=== PATIENT | female | born 1950 | race Hispanic/Latino ===

== ENCOUNTER → 2023-08-07 13:46 | Outpatient (REF) | payer OTHER, SELFPAY ==
[2023-08-07 14:10] VITALS: BP 132/81; BP_SYST 95
[2023-08-07 15:20] VITALS: BP 197/101
== END ==
LOC: RADI 13:46
PROVIDERS: ATTENDING PHYSICIAN Family Medicine
DX: M65.051 Abscess of tendon sheath, right thigh (principal); M65.052 Abscess of tendon sheath, left thigh
CPT/HCPCS: 10160; 76942

== ENCOUNTER → 2023-09-18 14:03 | Outpatient (REF) | payer OTHER, SELFPAY | LOC: DHCBC HW 14:03 | PROVIDERS: ATTENDING PHYSICIAN Internal Medicine; FAMILY PHYSICIAN Family Medicine | DX: I25.10 Atherosclerotic heart disease of native coronary artery without angina pectoris (principal); R07.9 Chest pain, unspecified | CPT/HCPCS: 93306 ==

== ENCOUNTER → 2023-09-25 07:51 | Outpatient (REF) | payer OTHER, SELFPAY | LOC: DHCBC/DCA 07:51 | PROVIDERS: ATTENDING PHYSICIAN Internal Medicine; FAMILY PHYSICIAN Family Medicine | DX: I25.10 Atherosclerotic heart disease of native coronary artery without angina pectoris (principal); Z95.1 Presence of aortocoronary bypass graft; R07.9 Chest pain, unspecified; R42 Dizziness and giddiness | CPT/HCPCS: 78452; 93017; A9500; J2785 ==

== ENCOUNTER → 2024-01-28 15:29 | Outpatient (REF) | payer OTHER, SELFPAY | LOC: REG 15:29 | PROVIDERS: ATTENDING PHYSICIAN Family Medicine | DX: R07.9 Chest pain, unspecified (principal); I25.10 Atherosclerotic heart disease of native coronary artery without angina pectoris; Z95.1 Presence of aortocoronary bypass graft | CPT/HCPCS: 71046 ==

== ENCOUNTER 2024-02-12 06:32 | Emergency (ER) | payer OTHER, SELFPAY ==
[2024-02-12 06:38] VITALS: BP 186/92
--- NOTE | 2024-02-12 07:25 | ED.GENMED ---
History of Present Illness
General
Chief Complaint: Abdominal Pain
Source: patient
Exam Limitations: none
Time Seen by Provider: 02/12/24 06:51
Nursing documentation reviewed up to this point in time: agreed with
History of Present Illness
History of Present Illness:
73-year-old female with a past medical history of hypertension, hyperlipidemia, diabetes, CAD status post CABG, asthma who presents to the emergency room for evaluation of abdominal pain. Patient reports onset of symptoms a few days ago and have
been constant since that time. She reports pain mainly in the epigastric region that radiates diffusely. No clear triggering or relieving factors noted�she says she has been trying Tylenol without improvement. She reports she has had associated
headache and nausea. Denies vomiting. She denies any diarrhea and in fact reports she has been constipated x 4 days. She denies any dysuria, hematuria, change in frequency. She denies any vaginal bleeding. She denies having had similar symptoms
in the past. She denies any prior history of abdominal surgeries.
Past History
Past History
ED Past Medical History: Arrthythmia (PVC's), Asthma, GERD, HTN, Hypercholesterolemia and IDDM
ED Past Surgical History: Cardiac (Unremarkable stress echo July 2013) and Gynecological (hysterectomy)
Social History
Tobacco: Former smoker
Alcohol: Occasional
Drug: None
Personal: Single
Living: with family
Employment: Not employed
Family History
Family History: Other (nc)
Review of Systems
Review of Systems
All Other Systems: ROS reviewed and negative except as documented in HPI and ROS
Constitutional: Denies fever or chills
Respiratory: Denies trouble breathing
Cardiac: Denies chest pain
ABD/GI: Reports abdominal pain, nausea and constipated; Denies vomiting
: Denies dysuria, frequency, flank pain or bleeding
Musculoskeletal: Denies neck pain or back pain
Neurological: Reports headache; Denies dizzy, weakness or numbness
Phy Exam
Physical Exam
Physical Exam:
General: Awake, alert, oriented x3; appears uncomfortable
Head: Normocephalic, atraumatic
Eyes: Conjunctiva normal, sclera anicteric
Throat: Airway intact, moist mucous membranes
Neck: Trachea midline, supple without meningismus
Lungs: Clear to auscultation bilaterally, no wheezing, rales, rhonchi
Heart: Regular rate and rhythm, no murmurs, gallops, or rubs
Abd: Soft, mild to moderately distended, hyperactive bowel sounds, diffusely tender maximal in the epigastric region with some voluntary guarding in the epigastrium
Back: No CVA tenderness
Neuro: No gross deficits
Skin: no rash
Extremities: No edema in extremities, equal pulses in all extremities
Scores
Heart Failure Risk
Heart Failure Risk Score: Not Applicable
Heart Score for Chest Pain Patients
STEMI patient?: Not applicable
Withdrawal Assessment of Alcohol
Withdrawal Assessment Completed?: Not applicable
Course
Orders/Labs/Results
Orders:
Orders
02/12/24 07:23
CT Abd/pel W Iv And Oral Contr Urgent
Comment:
Reason For Exam: abd pain and distention
Iohexol [Omnipaque] See Protocol PO NOW STA
02/12/24 07:27
Electrocardiogram (*1) Urgent
Reason for Study: Abdominal Pain
EKG- Treatment ONCE
0.9% Sodium Chloride 500 ml [Nss] 500 ml IV BOLUS
Morphine Sulfate 4 mg IV NOW STA
Ondansetron Injectable [Zofran] 4 mg IV NOW STA
02/12/24 07:46
Complete Blood Count/With Diff Urgent
Comprehensive Metabolic Panel Urgent
Lactate Level [Lactic Acid] Urgent
Lipase Urgent
Urinalysis Reflex To Culture Urgent
Date Specimen was Collected: 02/12/24
Time Specimen was Collected: 07:45
Abnormal Lab Results
02/12/24
07:46
MPV 11.7 H fL
(7.4-10.4)
Glucose 112 H mg/dl
(70-99)
Total Protein 6.2 L g/dl
(6.3-8.2)
02/12/24 07:46
02/12/24 07:46
Vital Signs
Initial and Last Documented VS:
Initial Vital Signs
Temp Pulse Resp BP Pulse Ox
36.7 C 76 24 186/92 97
02/12/24 06:38 02/12/24 06:38 02/12/24 06:38 02/12/24 06:38 02/12/24 06:38
Last Documented Vital Signs
Temp Pulse Resp BP Pulse Ox
36.7 C 84 18 154/101 94
02/12/24 06:38 02/12/24 10:17 02/12/24 10:17 02/12/24 12:19 02/12/24 12:30
MDM/Problems Addressed
Differential Diagnosis Includes:
Gastritis, pancreatitis, bowel obstruction, severe constipation, cholecystitis, cholelithiasis, DKA
MDM/Problems Addressed:
73-year-old female presents for evaluation of abdominal pain for the past few days associated with constipation, nausea, headache. Hypertensive but otherwise normal vitals. Physical exam as above. Check labs including a CBC and a CMP, lipase.
Will send urinalysis. Will check CT of the abdomen pelvis with p.o. IV contrast. Will treat pain and nausea. Check EKG. Provide some fluids. Reassess after the above.
Labs reviewed: CBC and CMP unremarkable. Lipase normal. Urinalysis negative for infection. CT shows abdominal wall hernia containing fat, no bowel. There is some adjacent information there was a suggestion of possible strangulation on CT but at
bedside this hernia is palpable and quite easily reducible; it is mildly tender to the touch but not hard and moves freely through the defect. This could be the source of her pain but she also has gallstones on CT and I wonder if this is more
likely source. Her pain has improved with treatment here, vitals have remained stable. Although she does have gallstones on CT she has no signs of cholecystitis. Her hernia is not strangulated/incarcerated on exam. I think she is stable for
discharge and can follow-up with a general surgeon as an outpatient. Patient comfortable to this plan. Spoke about return precautions all questions answered.
Acute Exacerbation and/or Progression of Chronic Illness:
Acutely hypertensive likely pain related�treat pain but hold on additional antihypertensive treatment for now
Acute Exacerbation and/or Progression of Chronic Illness: HTN
*Radiology
Radiology exam reviewed: radiology read reviewed
*Pulse Oximetry
Patient hypoxic: no
*Critical Care Note
Total Time (30-74mins, 75-104mins- exclusive of procedures): Not Applicable
Data Reviewed
Review of Other/Old Records Reveals: Labs and Records
Source: patient, records and spouse
ED Attending Note
-
Portions of this chart may have been created with voice recognition software.� Occasional wrong word or��sound alike� substitutions may have occurred due to the inherent limitations of voice recognition software.
Discharge Plan
Departure
Patient Disposition: Home (Routine Discharge)
Date of Disposition: 02/12/24
Time of Disposition: 12:51
Patient with high blood pressure during this ER visit?: Yes
Discharge Problem:
Abdominal wall hernia, Cholelithiasis
Instructions: Gallstones ED, Abdominal Hernia
Prescriptions:
No Action
metformin 1,000 MG tablet
1,000 mg PO BID@0800,1700
albuterol sulfate 1 PUFF HFA aerosol inhaler
2 puff inhalation R Q4HPRN PRN (Reason: wheezing) Qty: 1 0RF
aspirin 81 mg Tablet,Chewable
81 mg PO DAILY
cholecalciferol (vitamin D3) [Vitamin D3] 25 mcg (1,000 unit) Tablet
25 mcg PO DAILY
metoprolol tartrate [Lopressor] 50 mg tablet
75 mg PO BID Qty: 90 1RF
losartan 50 mg Tablet
50 mg PO DAILY Qty: 0
Patient Comments:
unknonw dose
amlodipine 5 mg Tablet
10 mg PO DAILY
docusate sodium 50 mg Capsule
50 mg PO DAILY PRN (Reason: constipation)
clopidogrel [Plavix] 75 mg Tablet
75 mg PO DAILY
fexofenadine 180 mg Tablet
180 mg PO DAILY PRN (Reason: allergies) Qty: 0
hydrochlorothiazide 25 mg tablet
25 mg PO DAILY
rosuvastatin 40 mg tablet
40 mg PO DAILY
pantoprazole 40 mg Tablet,Delayed Release (Dr/Ec)
40 mg PO DAILY Qty: 30 0RF
insulin lispro protamin-lispro [Humalog Mix 75-25 KwikPen] 100 unit/mL (75-25) insulin pen
30 unit SC DAILY Qty: 15 0RF
Humalog Mix 75-25(U-100)Insuln 100 unit/mL (75-25) suspension
23 unit SC DAILY Qty: 0 0RF
Rx Instructions:
at 1630 (evening)
Referrals:
Santosh Warner MD [Active] - Call in 1-3 days for appt
Fox Roe MD [Family Provider] -
Activity Restrictions/Additional Instructions:
You should call the general surgeon today to schedule follow-up as soon as possible for evaluation of your gallstones and your hernia. If you have worsening pain, nausea, fever or any other concerning symptoms please return to the emergency room.
Thank you for visiting the Emergency Department at [facility].
1. Please schedule a follow up appointment as directed. Call first thing tomorrow morning to make an appointment.
2. If indicated, please take your medications as instructed and indicated on discharge paperwork.
3. If any of your symptoms do not improve, or persist, or become more severe within 6-12 hours, please return to the emergency department for further care.
4. Please return to the emergency department if you develop a headache, neck pain/stiffness, fever greater than 100.4F, chest pain, shortness of breath, persistent nausea, vomiting, slurred speech, difficulty walking, numbness/tingling, weakness,
signs of infection or any other symptoms that are worrisome to you.
Please call [phone] if you have any questions.
Interventions
Interventions:
*Risk Screen - Suicide Last Done: 02/12/24 07:51
*General Assessment Last Done: 02/12/24 07:51
*Neglect/Abuse Screening Last Done: 02/12/24 07:51
ED- Fall Risk Assessment Last Done: 02/12/24 07:51
*ED COVID-19 Vaccine History Last Done: 02/12/24 07:51
SF-Fmxdhr-Cagatyghpt Assessment Last Done: 02/12/24 07:51
ED- Neurological Assessment Last Done: 02/12/24 07:51
Discharge Date and Time
Print Language: CAMEROONIAN
[2024-02-12] MEDS: MORPHINE SULFATE 4 MG IV (07:40)
[2024-02-12] MEDS: OMNIPAQUE 50 ML PO (07:40)
[2024-02-12] MEDS: ZOFRAN 4 MG IV (07:40)
[2024-02-12] MEDS: NSS 500 IV (07:43)
[2024-02-12 08:07] LABS: % Basophils 0.6 % (0-2); % Eosinophils 3.1 % (0-6); % Immature Granulocytes 0.3 % (0-0.5); % Lymphocytes 27.1 % (20.5-51.1); % Monocytes 8.3 % (1.7-9.3); % Neutrophils 60.6 % (42.2-75.2); Absolute Eosinophils 0.2 10^3/uL (0-0.7); Absolute Lymphocytes 1.9 10^3/uL (1.2-3.4); Absolute Monocytes 0.6 10^3/uL (0.1-0.6); Absolute Neutrophils 4.1 10^3/uL (1.4-6.5); Hematocrit 40.4 % (37.0-47.0); Hemoglobin 13.7 g/dL (12.0-16.0); Mean Corp Hgb Conc. 33.9 g/dL (33.0-37.0); Mean Corpuscular Hgb 28.8 pg (27.0-31.0); Mean Corpuscular Volume 84.9 fL (81.0-99.0); Mean Platelet Volume 11.7 fL (7.4-10.4); Nucleated Red Blood Cells % 0 %; Platelet Count 204 10^3/uL (130-400); Red Blood Cell Count 4.76 10^6/uL (4.20-5.40); Red Cell Dist. Width 13.1 % (11.5-14.5); White Blood Cell Count 6.8 10^3/uL (4.8-10.8)
[2024-02-12 08:11] LABS: Urine Albumin Negative (Neg - Trace); Urine Bilirubin Negative (Negative); Urine Character Clear (Clear); Urine Color Yellow; Urine Glucose Negative (Negative); Urine Ketone Negative (Negative); Urine Leukocyte Negative (Negative); Urine Nitrite Negative (Negative); Urine Occult Blood Negative (Negative); Urine Urobilinogen Negative (Neg - 1+)
[2024-02-12 08:12] VITALS: BP 186/104
[2024-02-12 08:18] LABS: Lactic Acid 1.1 mmol/L (0.7-2.0)
[2024-02-12 08:19] LABS: ALT (SGPT) 16 U/L (0-35); AST (SGOT) 22 U/L (14-36); Albumin 3.9 g/dl (3.5-5.0); Alkaline Phosphatase 69 U/L (38-126); Blood Urea Nitrogen 14 mg/dl (7-17); Calcium 9.6 mg/dl (8.4-10.2); Carbon Dioxide 29 mmol/L (22-30); Chloride 103 mmol/L (98-107); Glucose 112 mg/dl (70-99); Lipase 187 U/L (23-300); Potassium 3.9 mmol/L (3.5-5.1); Sodium 141 mmol/L (135-145); Total Bilirubin 0.5 mg/dl (0.2-1.3); Total Protein 6.2 g/dl (6.3-8.2); eGFR > 60.00
[2024-02-12 10:17] VITALS: BP 158/106
[2024-02-12 12:19] VITALS: BP 154/101
== END 2024-02-12 13:23 | disposition home or self-care (01) ==
LOC: EMR 06:32
PROVIDERS: EMERGENCY PHYSICIAN Emergency Medicine; FAMILY PHYSICIAN Family Medicine
DX: K46.9 Unspecified abdominal hernia without obstruction or gangrene (principal); K80.20 Calculus of gallbladder without cholecystitis without obstruction; I10 Essential (primary) hypertension; E78.00 Pure hypercholesterolemia, unspecified; E11.9 Type 2 diabetes mellitus without complications; I25.10 Atherosclerotic heart disease of native coronary artery without angina pectoris; J45.909 Unspecified asthma, uncomplicated; K21.9 Gastro-esophageal reflux disease without esophagitis; K59.00 Constipation, unspecified
CPT/HCPCS: 99284; 96374; 96375; 96361; 74177; 80053; 81003; 83605; 83690; 85025; 93005; Q9967

== ENCOUNTER 2024-02-26 11:18 | Emergency (ER) | payer OTHER, SELFPAY ==
[2024-02-26 11:24] VITALS: BP 135/92
[2024-02-26 11:58] LABS: COVID-19 Antigen Positive (Negative)
--- NOTE | 2024-02-26 12:08 | ED.GENMED ---
History of Present Illness
<Katy Trujillo DO, Resident - Last Filed: 02/26/24 14:18>
General
Chief Complaint: Cold/Flu/URI Symptoms
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
Exam Limitations: none
Time Seen by Provider: 02/26/24 11:38
Nursing documentation reviewed up to this point in time: agreed with
History of Present Illness
History of Present Illness:
Ms. Sandeep Salgado is a 73yo algerian-speaking female w pmh CAD s/p CABGx2 (2021), HTN, IDDM, asthma, abdominal wall hernia presenting with a cold. She has had a nonproductive cough for 3 days with sore throat. She also reports nausea, loss of
appetite, no vomiting, aches from b/l knees to her spine, weakness, MCDOWELL, and fever. She denies diarrhea, rhinorrhea, lightheadedness. She denies recent sick contacts.
Pt was seen in this ED 02/13, dx abdominal wall hernia. Appt w surgeon scheduled for
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
Past History
<Katy Trujillo DO, Resident - Last Filed: 02/26/24 14:18>
Past History
ED Past Medical History: Arrthythmia (PVC's), Asthma, CAD, GERD, HTN, Hypercholesterolemia and IDDM
ED Past Surgical History: Cardiac (Unremarkable stress echo July 2013) and Gynecological (hysterectomy)
Social History
Tobacco: Former smoker
Alcohol: Occasional
Drug: None
Personal: Single
Living: with family
Employment: Not employed
Family History
Family History: Other (nc)
Review of Systems
<Katy Trujillo DO, Resident - Last Filed: 02/26/24 14:18>
Review of Systems
All Other Systems: ROS reviewed and negative except as documented in HPI and ROS
Phy Exam
<Katy Trujillo DO, Resident - Last Filed: 02/26/24 14:18>
General Physical Exam
General Presentation: mild distress
General age: appears stated age
General Skin: warm and dry
General Habitus: obese
General Mental: alert
Cardiovascular Exam
Cardiovascular Exam: regular rate/rhythm, no edema, no gallop and no murmur
Heart Sounds: normal
Pulmonary Exam
Pulmonary Exam: lungs clear, no rales, no rhonchi and no wheezing
Oxygen Status: room air
Gastrointestinal Exam
Gastrointestinal Exam: soft and non distended
Palpation: left upper quadrant: No tenderness, left lower quadrant: No tenderness, right upper quadrant: No tenderness and right lower quadrant: Mild tenderness
Auscultation of Abdomen: hypoactive
Neurological Exam
Neurological Exam: alert and oriented x3
Course
<Katy Trujillo DO, Resident - Last Filed: 02/26/24 14:18>
Orders/Labs/Results
Orders:
Orders
02/26/24 11:48
COVID-19 Antigen Urgent
Source: Nasal Swab
Influenza A+B Rapid Molecular Urgent
RAÚL Source: Nasal Swab
Specimen Description:
02/26/24 12:13
0.9% Sodium Chloride 1000 ml [Nss] 1,000 ml IV BOLUS
Albuterol [ProAIR HFA INHALER] 2 puff INH R NOW STA
Dexamethasone Sod Phosphate [Decadron] 6 mg IV NOW STA
Ondansetron Injectable [Zofran] 4 mg IV NOW STA
02/26/24 12:16
Acetaminophen [Tylenol] 650 mg PO NOW STA
02/26/24 12:28
Complete Blood Count/No Diff Urgent
Comprehensive Metabolic Panel Urgent
Abnormal Lab Results
02/26/24 02/26/24
11:48 12:28
MCHC 32.8 L g/dL
(33.0-37.0)
Plt Count 127 L 10^3/uL
(130-400)
MPV 12.4 H fL
(7.4-10.4)
Chloride 96 L mmol/L
(98-107)
Glucose 209 H mg/dl
(70-99)
SARS-CoV-2 Antigen Positive A
(Negative)
02/26/24 12:28
02/26/24 12:28
Vital Signs
Initial and Last Documented VS:
Initial Vital Signs
Temp Pulse Resp BP Pulse Ox
99.5 F 103 18 135/92 95
02/26/24 11:24 02/26/24 11:24 02/26/24 11:24 02/26/24 11:24 02/26/24 11:24
Last Documented Vital Signs
Temp Pulse Resp BP Pulse Ox
99.5 F 103 18 135/92 95
02/26/24 11:24 02/26/24 11:24 02/26/24 11:24 02/26/24 11:24 02/26/24 11:24
<Lawson Roberts, DO - Last Filed: 02/26/24 12:29>
Orders/Labs/Results
Orders:
Orders
02/26/24 11:48
COVID-19 Antigen Urgent
Source: Nasal Swab
Influenza A+B Rapid Molecular Urgent
RAÚL Source: Nasal Swab
Specimen Description:
02/26/24 12:13
0.9% Sodium Chloride 1000 ml [Nss] 1,000 ml IV BOLUS
Albuterol [ProAIR HFA INHALER] 2 puff INH R NOW STA
Dexamethasone Sod Phosphate [Decadron] 6 mg IV NOW STA
Ondansetron Injectable [Zofran] 4 mg IV NOW STA
02/26/24 12:16
Acetaminophen [Tylenol] 650 mg PO NOW STA
02/26/24 12:28
Complete Blood Count/No Diff Urgent
Comprehensive Metabolic Panel Urgent
Abnormal Lab Results
02/26/24 02/26/24
11:48 12:28
MCHC 32.8 L g/dL
(33.0-37.0)
Plt Count 127 L 10^3/uL
(130-400)
MPV 12.4 H fL
(7.4-10.4)
Chloride 96 L mmol/L
(98-107)
Glucose 209 H mg/dl
(70-99)
SARS-CoV-2 Antigen Positive A
(Negative)
02/26/24 12:28
02/26/24 12:28
Vital Signs
Initial and Last Documented VS:
Initial Vital Signs
Temp Pulse Resp BP Pulse Ox
99.5 F 103 18 135/92 95
02/26/24 11:24 02/26/24 11:24 02/26/24 11:24 02/26/24 11:24 02/26/24 11:24
Last Documented Vital Signs
Temp Pulse Resp BP Pulse Ox
99.5 F 103 18 135/92 95
02/26/24 11:24 02/26/24 11:24 02/26/24 11:24 02/26/24 11:24 02/26/24 11:24
<Katy Trujillo DO, Resident - Last Filed: 02/26/24 14:18>
*Critical Care Note
Total Time (30-74mins, 75-104mins- exclusive of procedures): Not Applicable
ED Attending Note
<Katy Trujillo DO, Resident - Last Filed: 02/26/24 14:18>
-
Portions of this chart may have been created with voice recognition software.� Occasional wrong word or��sound alike� substitutions may have occurred due to the inherent limitations of voice recognition software.
<Lawson Roberts DO - Last Filed: 02/26/24 12:29>
ED Attending Note
Patient seen and examined by attending physician: Yes
I performed a history and physical exam of patient and discussed management with resident, I reviewed resident's note and agree with documented findings and plan of care.: Yes
ED Attending Note:
Seen with resident examined independently 73-year-old female body aches fevers cough nausea diagnosed with a hernia recently scheduled see surgeon this week here she looks mildly uncomfortable but nontoxic her abdomen is soft and nontender COVID is
positive, will start fluids steroids antiemetics antipyretics have asked pharmacy to check her medications to see if she would be a candidate for Paxlovid
Discharge Plan
Departure
Patient Disposition: Home (Routine Discharge)
Date of Disposition: 02/26/24
Time of Disposition: 12:38
Patient with high blood pressure during this ER visit?: No
Condition: Good
Covid-19: Confirmed COVID-19
Discharge Problem:
COVID-19
Instructions: COVID-19 ED, Coronavirus Home Quarantine
Prescriptions:
New
Paxlovid 300 mg (150 mg x 2)-100 mg tablets,dose pack
See Rx Instructions .ROUTE .COMPLEX Qty: 30 0RF
Rx Instructions:
take TWO 150 mg tablets of nirmatrelvir with ONE 100 mg tablet of ritonavir twice daily for 5 days
No Action
metformin 1,000 MG tablet
1,000 mg PO BID@0800,1700
cholecalciferol (vitamin D3) [Vitamin D3] 25 mcg (1,000 unit) Tablet
25 mcg PO DAILY
losartan 50 mg Tablet
50 mg PO DAILY Qty: 0
Patient Comments:
unknonw dose
hydrochlorothiazide 25 mg tablet
25 mg PO DAILY
rosuvastatin 40 mg tablet
40 mg PO DAILY
aspirin [Aspir-81] 81 mg Tablet,Delayed Release (Dr/Ec)
81 mg PO DAILY
budesonide-formoterol [Symbicort] 160-4.5 mcg/actuation HFA aerosol inhaler
2 inh INHALATION BID
pantoprazole 40 mg tablet,delayed release (DR/EC)
40 mg PO DAILY
Humalog Mix 75-25(U-100)Insuln 100 unit/mL (75-25) suspension
23 unit SC HS
Rx Instructions:
at 1630 (evening)
insulin lispro protamin-lispro [Humalog Mix 75-25 KwikPen] 100 unit/mL (75-25) insulin pen
30 unit SC DAILY
albuterol sulfate 90 mcg/actuation HFA aerosol inhaler
2 inh INHALATION Q4HPRN PRN (Reason: WHEEZING )
Referrals:
Fox Roe MD [Family Provider] - Next open appointment
Interventions
Interventions:
*Risk Screen - Suicide Last Done: 02/26/24 11:27
*General Assessment Last Done: 02/26/24 11:27
*Neglect/Abuse Screening Last Done: 02/26/24 11:27
ED- Fall Risk Assessment Last Done: 02/26/24 13:50
*ED COVID-19 Vaccine History Last Done: 02/26/24 11:27
*Nursing Disposition Last Done: 02/26/24 13:50
ED- Pulmonary Assessment Last Done: 02/26/24 13:05
Discharge Date and Time
Discharge Date/Time: 02/26/24 13:50
Print Language: NIGERIAN
[2024-02-26] MEDS: TYLENOL 650 MG PO (12:33)
[2024-02-26] MEDS: DECADRON 6 MG IV (12:33)
[2024-02-26] MEDS: ZOFRAN 4 MG IV (12:33)
[2024-02-26] MEDS: NSS 1000 IV (12:34)
[2024-02-26 12:47] LABS: Hematocrit 44.8 % (37.0-47.0); Hemoglobin 14.7 g/dL (12.0-16.0); Mean Corp Hgb Conc. 32.8 g/dL (33.0-37.0); Mean Corpuscular Hgb 28.9 pg (27.0-31.0); Mean Corpuscular Volume 88.2 fL (81.0-99.0); Mean Platelet Volume 12.4 fL (7.4-10.4); Platelet Count 127 10^3/uL (130-400); Red Blood Cell Count 5.08 10^6/uL (4.20-5.40); Red Cell Dist. Width 13.2 % (11.5-14.5); White Blood Cell Count 7.4 10^3/uL (4.8-10.8)
[2024-02-26 13:04] LABS: ALT (SGPT) 14 U/L (0-35); AST (SGOT) 22 U/L (14-36); Albumin 4.2 g/dl (3.5-5.0); Alkaline Phosphatase 65 U/L (38-126); Blood Urea Nitrogen 17 mg/dl (7-17); Calcium 9.4 mg/dl (8.4-10.2); Carbon Dioxide 27 mmol/L (22-30); Chloride 96 mmol/L (98-107); Glucose 209 mg/dl (70-99); Potassium 4.5 mmol/L (3.5-5.1); Sodium 135 mmol/L (135-145); Total Bilirubin 0.7 mg/dl (0.2-1.3); Total Protein 6.6 g/dl (6.3-8.2); eGFR > 60.00
[2024-02-26] MEDS: ProAIR HFA INHALER 2 PUFF INH (13:05)
== END 2024-02-26 13:50 | disposition home or self-care (01) ==
LOC: EMR 11:18
PROVIDERS: EMERGENCY PHYSICIAN Emergency Medicine; FAMILY PHYSICIAN Family Medicine
DX: U07.1 COVID-19 (principal); I25.10 Atherosclerotic heart disease of native coronary artery without angina pectoris; I10 Essential (primary) hypertension; E11.9 Type 2 diabetes mellitus without complications; J45.909 Unspecified asthma, uncomplicated; Z87.891 Personal history of nicotine dependence
CPT/HCPCS: 99284; 96374; 96375; 96361; 94640; 80053; 85027; 87502; 87811

== ENCOUNTER 2024-03-26 09:08 | Day surgery (SDC) | payer OTHER, SELFPAY ==
[2024-03-26] VITALS (16 sets, daily range): BP systolic 120–222; BP diastolic 78–123; BMI 37.0
[2024-03-26] MEDS: LOW STRENGTH ASPIRIN 81 MG PO (09:56)
[2024-03-26] MEDS: NSS 241 ML IV (09:57)
[2024-03-26 10:19] LABS: Glucose - Point of Care 73 mg/dl (70-99)
--- NOTE | 2024-03-26 10:47 | PTCARENOTE ---
Language line used to obtain information from pt and significant other. LL also used t explain procedure, modality, what to expect afterwards. Pt and S.O. verbalized understanding.
[2024-03-26 13:18] LABS: ACT-LR - POC 366 Seconds (116-155)
--- NOTE | 2024-03-26 13:32 | ITS.CL.CATH ---
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
Cardiac Catheterization
Procedure Report:
CARDIAC CATHETERIZATION REPORT
Date of Procedure: 03/26/2024
Referring: Cecilio Urbina M.D., Ph.D.
INDICATION: Anginal symptoms, known coronary artery disease status post bypass.
PROCEDURE:
1. Left heart catheterization
2. Coronary angiography.
3. Bypass angiography.
4. Successful IFR of the mid LAD.
ACCESS:
6 [place]ian left artery.
CATHETERS:
1. 5 [place]ian JENSEN.
2. 5 [place]ian JL 4.
3. 5 [place]ian JR4.
4. 6 [place]ian JL 4 guiding catheter.
HEMODYNAMIC DATA
Weight (kg): 80.3
AO (s/d/x, mmHg): 170/90/126
LV (s/x mmHg): 175/22
LEFT VENTRICULOGRAPHY: Not performed.
CORONARY ANGIOGRAPHY
Dominance: Right.
Left Main: Normal size, trifurcating vessel. There is no coronary artery disease.
LAD: Normal size vessel giving rise to 2 diagonals. There is a 40-50% lesion in the mid vessel after the origin of the first diagonal. The second diagonal is chronically totally occluded.
Ramus: Small size vessel supplying the proximal anterolateral wall. There is no coronary artery disease.
Circumflex: Small size, nondominant vessel that essentially traces the proximal AV groove. There is no coronary artery disease.
RCA: Large size, dominant vessel with a large posterolateral arcade supplying the entire inferior and inferior lateral wall. There are luminal irregularities in the mid vessel.
BYPASS GRAFT ANGIOGRAPHY
RIVERA to LAD: Atretic graft.
SVG to D2: Chronically totally occluded at its origin.
INTERVENTION(S)
1. Successful IFR of the 40-50% mid LAD lesion, demonstrating nonocclusive disease (IFR = 0.94).
Narrative:
The decision was made to perform physiologic testing. The diagnostic catheter was removed over a wire and exchanged for a(n) 6 Tunisian JL 4 guiding catheter. The guiding catheter was advanced into the ascending aorta and seated in the left main
coronary artery. Additional heparin was given to obtain an ACT greater than 250 seconds. An iFR wire was zeroed outside of the body, then inserted into the guiding sheath. The wire was advanced and the transducer was normalized just outside of the
guiding catheter tip. The wire was advanced into the distal LAD, beyond the 40-50% lesion. Three iFR measurements were taken. The lesion was determined to be nonocclusive (0.94).
Closure Device: Vascular band.
Radiation (mGy): 446.27
DAP (cm2.Gy): 36.0934
Fluoroscopy time (minutes): 11.2
Sedation time (minutes): 59
CONCLUSIONS
1. Right dominant circulation with a large posterolateral arcade off of the RCA, a chronically totally occluded second diagonal branch and a nonocclusive 40-50% mid LAD lesion (IFR = 0.94), status post coronary artery bypass grafting (occluded RIVERA
to LAD, occluded SVG to D2).
2. Moderately elevated filling pressures (LVEDP = 22 mmHg at 80.3 kg).
3. Severe systemic hypertension.
RECOMMENDATIONS:
1. Expectant management after cardiac catheterization via left approach.
2. Limited weight bearing on the left for one week.
3. No role for invasive revascularization at this time.
4. Medical management of occluded diagonal, possibly vasospastic disease. Start nifedipine 30 mg daily.
5. Aggressive secondary prevention with high-dose, high potency statin.
6. Start furosemide 40 mg p.o. daily for elevated filling pressures. BMP in 1 week to monitor renal function and potassium levels.
7. Stable for outpatient follow-up.
Copy to: Cecilio Urbina M.D., Ph.D., Allyn Berry M.D.
Blas Moody, DO, FACC, FACP
[2024-03-26 13:46] LABS: Glucose - Point of Care 131 mg/dl (70-99)
[2024-03-26] MEDS: APRESOLINE 5 MG IV (13:53)
[2024-03-26] MEDS: NSS 1000 IV (13:54)
[2024-03-26] MEDS: COZAAR 50 MG PO (14:06)
[2024-03-26] MEDS: PROCARDIA XL (EXTENDED RELEASE) 30 MG PO (14:06)
== END 2024-03-26 17:27 | disposition home or self-care (01) ==
LOC: CATH 09:08
PROVIDERS: ATTENDING PHYSICIAN Internal Medicine Cardiovascular Disease; FAMILY PHYSICIAN Family Medicine; OTHER PHYSICIAN Internal Medicine
DX: I25.119 Atherosclerotic heart disease of native coronary artery with unspecified angina pectoris (principal); I25.719 Atherosclerosis of autologous vein coronary artery bypass graft(s) with unspecified angina pectoris; Z95.1 Presence of aortocoronary bypass graft; E78.5 Hyperlipidemia, unspecified; K21.9 Gastro-esophageal reflux disease without esophagitis; I25.82 Chronic total occlusion of coronary artery; I10 Essential (primary) hypertension
CPT/HCPCS: 93799; 82962; 85347; 93459; C1769; C1894; Q9967

== ENCOUNTER 2024-05-11 00:09 | Emergency (ER) | payer OTHER, SELFPAY ==
[2024-05-11 00:10] VITALS: BP 142/92
[2024-05-11 00:41] LABS: % Basophils 0.5 % (0-2); % Eosinophils 0.6 % (0-6); % Immature Granulocytes 1.4 % (0-0.5); % Monocytes 8.2 % (1.7-9.3); % Neutrophils 62.3 % (42.2-75.2); Absolute Basophils 0.1 10^3/uL (0-0.2); Absolute Eosinophils 0.1 10^3/uL (0-0.7); Absolute Immature Granulocytes 0.1 10^3/uL (0-0.05); Absolute Lymphocytes 2.7 10^3/uL (1.2-3.4); Absolute Monocytes 0.8 10^3/uL (0.1-0.6); Absolute Neutrophils 6.3 10^3/uL (1.4-6.5); Hemoglobin 14.4 g/dL (12.0-16.0); Mean Corp Hgb Conc. 33.5 g/dL (33.0-37.0); Mean Corpuscular Hgb 29.9 pg (27.0-31.0); Mean Corpuscular Volume 89.4 fL (81.0-99.0); Mean Platelet Volume 11.4 fL (7.4-10.4); Nucleated Red Blood Cells % 0 %; Platelet Count 214 10^3/uL (130-400); Red Blood Cell Count 4.81 10^6/uL (4.20-5.40); Red Cell Dist. Width 13.3 % (11.5-14.5); White Blood Cell Count 10.1 10^3/uL (4.8-10.8)
[2024-05-11 00:57] LABS: Troponin I < 0.012 ng/ml
[2024-05-11 01:02] LABS: AST (SGOT) 26 U/L (14-36); Albumin 4.6 g/dl (3.5-5.0); Alkaline Phosphatase 77 U/L (38-126); Blood Urea Nitrogen 40 mg/dl (7-17); Calcium 9.5 mg/dl (8.4-10.2); Carbon Dioxide 27 mmol/L (22-30); Chloride 91 mmol/L (98-107); Glucose 211 mg/dl (70-99); Lipase 273 U/L (23-300); Potassium 4.1 mmol/L (3.5-5.1); Sodium 136 mmol/L (135-145); Total Bilirubin 0.5 mg/dl (0.2-1.3); Total Protein 7.1 g/dl (6.3-8.2); eGFR 36.12
[2024-05-11 01:11] LABS: ALT (SGPT) 21 U/L (0-35)
--- NOTE | 2024-05-11 01:46 | ED.GENMED ---
History of Present Illness
General
Chief Complaint: Abdominal Pain
Source: patient
Exam Limitations: none
Time Seen by Provider: 05/11/24 01:37
History of Present Illness
History of Present Illness:
See MDM
Past History
Past History
ED Past Medical History: Arrthythmia (PVC's), Asthma, CAD, GERD, HTN, Hypercholesterolemia and IDDM
ED Past Surgical History: Cardiac (Unremarkable stress echo July 2013) and Gynecological (hysterectomy)
Social History
Tobacco: Former smoker
Alcohol: Occasional
Drug: None
Personal: Single
Living: with family
Employment: Not employed
Family History
Family History: Other (nc)
Phy Exam
Physical Exam
Physical Exam:
See MDM
Course
Orders/Labs/Results
Orders:
Orders
05/11/24 00:19
Electrocardiogram (*1) Urgent
Reason for Study: Chest Pain
EKG- Treatment ONCE
05/11/24 00:23
Complete Blood Count/With Diff Urgent
Comprehensive Metabolic Panel Urgent
Lipase Urgent
Troponin I Urgent
05/11/24 01:45
CT Abd/pelvis W Iv Cont Urgent
Comment:
Reason For Exam: mid abd pain
Ketorolac [Toradol] 30 mg .ROUTE .STK-MED ONE
Ketorolac [Toradol] 30 mg IV NOW STA
Abnormal Lab Results
05/11/24
00:23
MPV 11.4 H fL
(7.4-10.4)
Abs Immat Gran (auto) 0.1 H 10^3/uL
(0-0.05)
Absolute Monos (auto) 0.8 H 10^3/uL
(0.1-0.6)
Immature Gran % 1.4 H %
(0-0.5)
Chloride 91 L mmol/L
(98-107)
BUN 40 H mg/dl
(7-17)
Creatinine 1.5 H mg/dL
(0.6-1.0)
Glucose 211 H mg/dl
(70-99)
05/11/24 00:23
05/11/24 00:23
Vital Signs
Initial and Last Documented VS:
Initial Vital Signs
Temp Pulse Resp BP Pulse Ox
98.1 F 92 18 142/92 97
05/11/24 00:10 05/11/24 00:10 05/11/24 00:10 05/11/24 00:10 05/11/24 00:10
Last Documented Vital Signs
Temp Pulse Resp BP Pulse Ox
98.1 F 92 18 142/92 97
05/11/24 00:10 05/11/24 00:10 05/11/24 00:10 05/11/24 00:10 05/11/24 00:10
MDM/Problems Addressed
Differential Diagnosis Includes:
HPI and MDM Narrative:
73-year-old female presenting with 4 months of abdominal pain. Patient states it has significantly worsened over the past 2 nights. Patient complains of generalized muscle aches in her abdomen and complains of nausea. In triage, she started to
complain of chest pain but EKG and troponin are negative. On exam, she does have mild tenderness to her mid abdomen. She is otherwise well-appearing nontoxic. Will obtain CT
Physical exam
General: Well appearing and non-toxic
HEENT: protecting airway
Neck: appears supple
CV: No evidence of cyanosis. Regular rate and rhythm
Resp: No accessory muscle use
Abd: Non-distended. Mild mid abdominal tenderness without rebound
Extremities: No deformities
Neuro: alert
Psych: Normal affect
Skin: Intact
Problems Addressed including Acute and Chronic Conditions affecting care:
1. Abdominal pain
Acuity: acute
Prognosis: stable
Details: Given duration of symptoms, will obtain CT
Updates
CT shows multiple gallstones but no evidence of acute cholecystitis. She does not have leukocytosis or elevated LFTs. We discussed outpatient follow-up with general surgery. We also discussed stool softeners and MiraLAX for constipation
Differential Diagnosis (but not limited to): Constipation, colitis, pancreatitis
Testing considered: Right upper quadrant ultrasound
Drug therapy (if applicable): OTC meds, please see d/c instruction regarding Rx drugs
Amount and/or Complexity of Data Reviewed
Clinical info obtained from: Patient
External data reviewed: N/A
Labs I independently reviewed (but not limited to): Hyperglycemia, trop normal
Radiology: The CT scan was personally and independently reviewed. In addition, official CT report reviewed.
Pulse Ox: not hypoxic
EKG independently reviewed: N/A
Instrument Maker: N/A
Critical Care: N/A
Risk of Complication:
Social Determinants of health: Good social support
Discussed with other providers: N/A
Escalation of Care includes Admit/Obs: After being observed in the Emergency Department, pt stable for discharge.
Occasional wrong word or 'sound a like' substitutions may have occurred due to the inherent limitations of voice recognition software. Read the chart carefully and recognize, using context, where substitutions have occurred.
*Critical Care Note
Total Time (30-74mins, 75-104mins- exclusive of procedures): Not Applicable
ED Attending Note
-
Portions of this chart may have been created with voice recognition software.� Occasional wrong word or��sound alike� substitutions may have occurred due to the inherent limitations of voice recognition software.
Discharge Plan
Departure
Patient Disposition: Home (Routine Discharge)
Date of Disposition: 05/11/24
Time of Disposition: 03:06
Patient with high blood pressure during this ER visit?: No
Discharge Problem:
Symptomatic cholelithiasis, Constipation
Instructions: Gallstones (DC)
Prescriptions:
No Action
metformin 1,000 MG tablet
1,000 mg PO BID@0800,1700
cholecalciferol (vitamin D3) [Vitamin D3] 25 mcg (1,000 unit) Tablet
25 mcg PO DAILY
losartan 50 mg Tablet
50 mg PO DAILY Qty: 0
Patient Comments:
unknonw dose
hydrochlorothiazide 25 mg tablet
25 mg PO DAILY
rosuvastatin 40 mg tablet
40 mg PO DAILY
aspirin 81 mg Tablet,Delayed Release (Dr/Ec)
81 mg PO DAILY
budesonide-formoterol [Symbicort] 160-4.5 mcg/actuation HFA aerosol inhaler
2 inh INHALATION BID
pantoprazole 40 mg tablet,delayed release (DR/EC)
40 mg PO DAILY
Humalog Mix 75-25(U-100)Insuln 100 unit/mL (75-25) suspension
23 unit SC HS
Rx Instructions:
at 1630 (evening)
insulin lispro protamin-lispro [Humalog Mix 75-25 KwikPen] 100 unit/mL (75-25) insulin pen
30 unit SC DAILY
albuterol sulfate 90 mcg/actuation HFA aerosol inhaler
2 inh INHALATION Q4HPRN PRN (Reason: WHEEZING )
acetaminophen [Tylenol] 325 mg Tablet
650 mg PO Q6H PRN (Reason: pain)
ezetimibe [Zetia] 10 mg Tablet
10 mg PO DAILY
duloxetine 30 mg Capsule, Delayed Rel Sprinkle
30 mg PO DAILY
nifedipine [Procardia XL] 30 mg tablet extended release 24hr
30 mg PO DAILY Qty: 90 5RF
furosemide [Lasix] 40 mg tablet
40 mg PO DAILY Qty: 90 5RF
Referrals:
Toby Davila MD [Active] -
Fox Roe MD [Family Provider] -
Activity Restrictions/Additional Instructions:
Please return for any worsening symptoms.
You may return at any time if you have further concerns.
Please follow up with your doctor at the first available appointment, preferably this week.
Please take a stool softener and laxative over the next few days for your constipation.
Please make an appointment with the general surgeon to reassess your symptoms and your gallstones.
Thank you for choosing [facility].
Interventions
Interventions:
*Risk Screen - Suicide Last Done: 05/11/24 00:27
*General Assessment Last Done: 05/11/24 00:10
*Neglect/Abuse Screening Last Done: 05/11/24 00:27
ED- Fall Risk Assessment Last Done: 05/11/24 02:18
*ED COVID-19 Vaccine History Last Done: 05/11/24 00:10
ET-Mmpjak-Nisnognrms Assessment Last Done: 05/11/24 02:18
Discharge Date and Time
Print Language: CZECH
[2024-05-11] MEDS: TORADOL 30 MG IV (01:52)
== END 2024-05-11 03:21 | disposition home or self-care (01) ==
LOC: EMR 00:09
PROVIDERS: Emergency Medicine; EMERGENCY PHYSICIAN Student in an Organized Health Care Education/Training Program; FAMILY PHYSICIAN Family Medicine
DX: K80.20 Calculus of gallbladder without cholecystitis without obstruction (principal); K59.00 Constipation, unspecified; J45.909 Unspecified asthma, uncomplicated; I25.10 Atherosclerotic heart disease of native coronary artery without angina pectoris; E78.00 Pure hypercholesterolemia, unspecified; E11.9 Type 2 diabetes mellitus without complications; I10 Essential (primary) hypertension; Z79.4 Long term (current) use of insulin; Z87.891 Personal history of nicotine dependence; Z90.710 Acquired absence of both cervix and uterus
CPT/HCPCS: 99284; 96374; 74177; 80053; 83690; 84484; 85025; 93005; Q9967

== ENCOUNTER 2024-08-21 16:21 | Emergency (ER) | payer OTHER, SELFPAY ==
[2024-08-21 16:53] VITALS: BP 152/87
[2024-08-21 17:22] LABS: % Basophils 0.4 % (0-2); % Eosinophils 1.4 % (0-6); % Immature Granulocytes 0.4 % (0-0.5); % Lymphocytes 32.2 % (20.5-51.1); % Monocytes 8.7 % (1.7-9.3); % Neutrophils 56.9 % (42.2-75.2); Absolute Eosinophils 0.1 10^3/uL (0-0.7); Absolute Lymphocytes 2.7 10^3/uL (1.2-3.4); Absolute Monocytes 0.7 10^3/uL (0.1-0.6); Absolute Neutrophils 4.8 10^3/uL (1.4-6.5); Hematocrit 42.6 % (37.0-47.0); Hemoglobin 12.9 g/dL (12.0-16.0); Mean Corp Hgb Conc. 30.3 g/dL (33.0-37.0); Mean Corpuscular Volume 89.3 fL (81.0-99.0); Mean Platelet Volume 10.2 fL (7.4-10.4); Nucleated Red Blood Cells % 0 %; Platelet Count 219 10^3/uL (130-400); Red Blood Cell Count 4.77 10^6/uL (4.20-5.40); Red Cell Dist. Width 14.9 % (11.5-14.5); White Blood Cell Count 8.4 10^3/uL (4.8-10.8)
[2024-08-21 18:23] LABS: ALT (SGPT) 20 U/L (0-35); AST (SGOT) 22 U/L (14-36); Albumin 4.6 g/dl (3.5-5.0); Alkaline Phosphatase 82 U/L (38-126); Blood Urea Nitrogen 15 mg/dl (7-17); Calcium 9.7 mg/dl (8.4-10.2); Carbon Dioxide 29 mmol/L (22-30); Chloride 103 mmol/L (98-107); Glucose 46 mg/dl (70-99); Sodium 139 mmol/L (135-145); Total Bilirubin 0.5 mg/dl (0.2-1.3); eGFR > 60.00
[2024-08-21 18:27] LABS: Lipase 374 U/L (23-300)
[2024-08-21 18:55] VITALS: BMI 34.5
[2024-08-21 18:57] LABS: Glucose - Point of Care 70 mg/dl (70-99)
[2024-08-21 20:10] LABS: Glucose - Point of Care 58 mg/dl (70-99)
--- NOTE | 2024-08-21 20:12 | ED.GENMED ---
History of Present Illness
General
Chief Complaint: Abdominal Symptoms
Source: patient and spouse
Exam Limitations: none
Time Seen by Provider: 08/21/24 19:44
Nursing documentation reviewed up to this point in time: agreed with
History of Present Illness
History of Present Illness:
73-year-old female diabetic heart problems hypercholesterolemia presents with abdominal cramping leg cramping itching for about 3 days, seen by PCP referred to the ER no fever chills no nausea or vomiting no prior abdominal surgeries
History obtained through the [place]
Past History
Past History
ED Past Medical History: Arrthythmia (PVC's), Asthma, CAD, GERD, HTN, Hypercholesterolemia and IDDM
ED Past Surgical History: Cardiac (Unremarkable stress echo July 2013) and Gynecological (hysterectomy)
Social History
Tobacco: Former smoker
Alcohol: Occasional
Drug: None
Personal: Single
Living: with family
Employment: Not employed
Family History
Family History: Other (nc)
Review of Systems
Review of Systems
All Other Systems: Not applicable
Constitutional: Denies fever or fatigue
EENT: Reports no symptoms
Respiratory: Reports no symptoms
ABD/GI: Reports abdominal pain
Skin: Reports itching and other (Cramps and itching)
Phy Exam
Physical Exam
Physical Exam:
Physical Exam
General: no apparent distress, not acutely ill
Neck: No jaundice
Heart: s1/s2 regular rate and rhythm, no murmur. equal radial pulses.
Lungs: no acute respiratory distress. clear bilaterally
Abdomen: Tender in the epigastrium
Neuro: alert and oriented. no focal neurological deficits
Skin: no rash
Psychiatric: well kept. interactive and cooperative
Extremities: no edema.
Course
Orders/Labs/Results
Orders:
Orders
08/21/24 17:07
Complete Blood Count/With Diff Urgent
Comprehensive Metabolic Panel Urgent
Lipase Urgent
08/21/24 20:05
0.9% Sodium Chloride 1000 ml [Nss] 1,000 ml IV BOLUS
08/21/24 20:06
CT Abd/pelvis W Iv Cont Urgent
Comment:
Reason For Exam: pain
Bedside Glucose- Treatment ONCE
Diphenhydramine [Benadryl] 25 mg IV NOW STA
08/21/24 20:07
Electrocardiogram (*1) Urgent
Reason for Study: Abdominal Pain
EKG- Treatment ONCE
08/21/24 21:35
Morphine Sulfate 4 mg IV NOW STA
08/21/24 22:28
Dextrose 50%-Water [Dextrose 50% Syringe] 25 grams IV NOW STA
08/21/24 23:36
Troponin I Urgent
08/22/24 00:00
US Abdomen Limited Urgent
Reason For Exam: pain gallstgones
Abnormal Lab Results
08/21/24 08/21/24 08/21/24
17:07 20:08 22:27
MCHC 30.3 L g/dL
(33.0-37.0)
RDW 14.9 H %
(11.5-14.5)
Absolute Monos (auto) 0.7 H 10^3/uL
(0.1-0.6)
Glucose 46 L* mg/dl
(70-99)
Lipase 374 H U/L
(23-300)
POC Glucose 58 L mg/dl 62 L mg/dl
(70-99) (70-99)
08/21/24
22:41
MCHC
RDW
Absolute Monos (auto)
Glucose
Lipase
POC Glucose 139 H mg/dl
(70-99)
08/21/24 17:07
08/21/24 17:07
Vital Signs
Initial and Last Documented VS:
Initial Vital Signs
Temp Pulse Resp BP Pulse Ox
98.2 F 87 16 152/87 98
08/21/24 16:53 08/21/24 16:53 08/21/24 16:53 08/21/24 16:53 08/21/24 16:53
Last Documented Vital Signs
Temp Pulse Resp BP Pulse Ox
97.6 F 70 16 130/75 96
08/21/24 20:21 08/21/24 21:44 08/21/24 21:44 08/22/24 00:00 08/22/24 00:30
MDM/Problems Addressed
Differential Diagnosis Includes:
Biliary tract disease, allergic reaction electrolyte abnormality neuropathy
MDM/Problems Addressed:
Abdominal leg cramps itching
Chronic conditions affecting care: DM
Acute Exacerbation and/or Progression of Chronic Illness: DM
*Radiology
Radiology exam reviewed: radiology read reviewed
*Pulse Oximetry
Patient hypoxic: no
*EKG
Interpreted by ED Provider?: Yes
Interpretation: normal
Comparison EKG: no comparison EKG present
Heart Rate: 74
Rate: normal
Rhythm: sinus
Ischemia: no ischemia
*Unstacker Interpretation
Rate: normal
Interpretation: normal
Heart Rate: 78
Rhythm: sinus
*Critical Care Note
Total Time (30-74mins, 75-104mins- exclusive of procedures): Not Applicable
Update Note
Update Note:
update, pt in nad, labs noted, ct report revewed, u/s with stones, neg sonographic murphys
undectabel troponin
ED Attending Note
-
Portions of this chart may have been created with voice recognition software.� Occasional wrong word or��sound alike� substitutions may have occurred due to the inherent limitations of voice recognition software.
Discharge Plan
Departure
Patient Disposition: Home (Routine Discharge)
Date of Disposition: 08/22/24
Time of Disposition: 01:35
Patient with high blood pressure during this ER visit?: No
Condition: Good
Discharge Problem:
Abdominal pain, puritis
Instructions: Nausea and Vomiting, Adult (DC), Abdominal Pain
Prescriptions:
New
dicyclomine 20 mg tablet
20 mg PO QID PRN (Reason: pain) Qty: 20 0RF
diphenhydramine HCl [Benadryl Allergy] 25 mg tablet
25 mg PO TID PRN (Reason: itching) Qty: 20 0RF
No Action
metformin 1,000 MG tablet
1,000 mg PO BID@0800,1700
cholecalciferol (vitamin D3) [Vitamin D3] 25 mcg (1,000 unit) Tablet
25 mcg PO DAILY
losartan 50 mg Tablet
50 mg PO DAILY Qty: 0
Patient Comments:
unknonw dose
hydrochlorothiazide 25 mg tablet
25 mg PO DAILY
rosuvastatin 40 mg tablet
40 mg PO DAILY
aspirin 81 mg Tablet,Delayed Release (Dr/Ec)
81 mg PO DAILY
budesonide-formoterol [Symbicort] 160-4.5 mcg/actuation HFA aerosol inhaler
2 inh INHALATION BID
pantoprazole 40 mg tablet,delayed release (DR/EC)
40 mg PO DAILY
Humalog Mix 75-25(U-100)Insuln 100 unit/mL (75-25) suspension
23 unit SC HS
Rx Instructions:
at 1630 (evening)
insulin lispro protamin-lispro [Humalog Mix 75-25 KwikPen] 100 unit/mL (75-25) insulin pen
30 unit SC DAILY
albuterol sulfate 90 mcg/actuation HFA aerosol inhaler
2 inh INHALATION Q4HPRN PRN (Reason: WHEEZING )
acetaminophen [Tylenol] 325 mg Tablet
650 mg PO Q6H PRN (Reason: pain)
ezetimibe [Zetia] 10 mg Tablet
10 mg PO DAILY
duloxetine 30 mg Capsule, Delayed Rel Sprinkle
30 mg PO DAILY
nifedipine [Procardia XL] 30 mg tablet extended release 24hr
30 mg PO DAILY Qty: 90 5RF
furosemide [Lasix] 40 mg tablet
40 mg PO DAILY Qty: 90 5RF
Referrals:
Toby Davila MD [Active] - Next open appointment
NONE,* [Family Provider] -
Activity Restrictions/Additional Instructions:
Followup up with your primary care provider and general surgery
Interventions
Interventions:
*Risk Screen - Suicide Last Done: 08/21/24 16:57
*General Assessment Last Done: 08/21/24 21:29
*Neglect/Abuse Screening Last Done: 08/21/24 16:57
*ED- Fall Risk Assessment Last Done: 08/21/24 21:28
*ED COVID-19 Vaccine History Last Done: 08/21/24 21:28
UI-Xumhil-Mybzdqekyp Assessment Last Done: 08/21/24 21:26
Discharge Date and Time
Print Language: [place]
[2024-08-21 20:21] VITALS: BP 172/85
[2024-08-21] MEDS: NSS 1000 IV (20:30)
[2024-08-21] MEDS: BENADRYL 25 MG IV (20:31)
[2024-08-21 20:36] LABS: Glucose - Point of Care 86 mg/dl (70-99)
[2024-08-21 21:00] VITALS: BP 161/83
[2024-08-21] MEDS: MORPHINE SULFATE 4 MG IV (21:42)
[2024-08-21 22:28] LABS: Glucose - Point of Care 62 mg/dl (70-99)
[2024-08-21] MEDS: DEXTROSE 50% SYRINGE 25 GRAMS IV (22:32)
[2024-08-21 22:43] LABS: Glucose - Point of Care 139 mg/dl (70-99)
[2024-08-21 23:41] VITALS: BP 164/93
[2024-08-22] VITALS: BP 130/75
[2024-08-22 00:11] LABS: Troponin I < 0.012 ng/ml
[2024-08-22 01:00] VITALS: BP 133/79
== END 2024-08-22 02:04 | disposition home or self-care (01) ==
LOC: EMR 16:21
PROVIDERS: Student in an Organized Health Care Education/Training Program; EMERGENCY PHYSICIAN Emergency Medicine
DX: R10.9 Unspecified abdominal pain (principal); E11.9 Type 2 diabetes mellitus without complications; E78.00 Pure hypercholesterolemia, unspecified; I49.3 Ventricular premature depolarization; J45.909 Unspecified asthma, uncomplicated; I25.10 Atherosclerotic heart disease of native coronary artery without angina pectoris; I10 Essential (primary) hypertension; K21.9 Gastro-esophageal reflux disease without esophagitis; Z87.891 Personal history of nicotine dependence; Z90.710 Acquired absence of both cervix and uterus
CPT/HCPCS: 99284; 96374; 96375; 96361; 74177; 76705; 80053; 82962; 83690; 84484; 85025; 93005; Q9967

== ENCOUNTER → 2024-11-28 13:02 | Outpatient (REF) | payer OTHER, SELFPAY | LOC: HWRAD 13:02 | PROVIDERS: ATTENDING PHYSICIAN Family Medicine | DX: K80.20 Calculus of gallbladder without cholecystitis without obstruction (principal); R10.9 Unspecified abdominal pain | CPT/HCPCS: 76700 ==

== ENCOUNTER 2024-11-28 13:49 | Emergency (ER) | payer OTHER, SELFPAY ==
[2024-11-28 13:52] VITALS: BP 170/88
[2024-11-28 14:15] LABS: % Basophils 0.4 % (0-2); % Eosinophils 1.9 % (0-6); % Immature Granulocytes 0.3 % (0-0.5); % Lymphocytes 25.3 % (20.5-51.1); % Monocytes 8.5 % (1.7-9.3); % Neutrophils 63.6 % (42.2-75.2); Absolute Eosinophils 0.1 10^3/uL (0-0.7); Absolute Lymphocytes 1.9 10^3/uL (1.2-3.4); Absolute Monocytes 0.6 10^3/uL (0.1-0.6); Absolute Neutrophils 4.7 10^3/uL (1.4-6.5); Hematocrit 35.7 % (37.0-47.0); Mean Corp Hgb Conc. 30.8 g/dL (33.0-37.0); Mean Corpuscular Hgb 24.7 pg (27.0-31.0); Mean Platelet Volume 10.5 fL (7.4-10.4); Nucleated Red Blood Cells % 0 %; Platelet Count 222 10^3/uL (130-400); Red Blood Cell Count 4.46 10^6/uL (4.20-5.40); Red Cell Dist. Width 14.4 % (11.5-14.5); White Blood Cell Count 7.4 10^3/uL (4.8-10.8)
[2024-11-28 14:31] LABS: ALT (SGPT) 19 U/L (0-35); AST (SGOT) 19 U/L (14-36); Albumin 4.1 g/dl (3.5-5.0); Alkaline Phosphatase 90 U/L (38-126); Blood Urea Nitrogen 17 mg/dl (7-17); Calcium 9.5 mg/dl (8.4-10.2); Carbon Dioxide 27 mmol/L (22-30); Chloride 108 mmol/L (98-107); Glucose 172 mg/dl (70-99); Lipase 153 U/L (23-300); Sodium 140 mmol/L (135-145); Total Bilirubin 0.4 mg/dl (0.2-1.3); Total Protein 6.8 g/dl (6.3-8.2); eGFR > 60.00
[2024-11-28 15:56] VITALS: BP 184/74
--- NOTE | 2024-11-28 16:07 | ED.GENMED ---
History of Present Illness
General
Chief Complaint: Abdominal Pain
Time Seen by Provider: 11/28/24 15:18
History of Present Illness
History of Present Illness:
The patient is a 73-year-old female presenting with abdominal pain, chest pain, and symptoms suggestive of a vaginal infection. The abdominal pain started about a week ago and was initially mild but has progressed to being very strong. The patient
reports associated nausea without vomiting. Regarding chest pain, the patient describes it as intermittent, feeling like it worsens with physical exertion. She also mentions experiencing dyspnea on deep inspiration and mild respiratory issues. The
patient has a history of heart disease, which is relevant to her current presentation.
Concerning the vaginal infection, the patient completed eight days of prescribed antibiotics, yet reports no improvement in symptoms. She experiences burning and itching, particularly noticeable upon urination and cleansing, but denies any
discahrge. No fevers or chills. No lower abdominal pain. She has not had this chest pain shortness of breath before.
Past History
Past History
ED Past Medical History: Arrthythmia (PVC's), Asthma, CAD, GERD, HTN, Hypercholesterolemia and IDDM
ED Past Surgical History: Cardiac (Unremarkable stress echo July 2013) and Gynecological (hysterectomy)
Social History
Tobacco: Former smoker
Alcohol: Occasional
Drug: None
Personal: Single
Living: with family
Employment: Not employed
Family History
Family History: Other (nc)
Phy Exam
Physical Exam
Physical Exam:
GENERAL: in no acute distress
HEENT: normocephalic, extraocular movements intact, moist oral mucosa
NECK: normal inspection
RESPIRATORY: no respiratory distress, clear to auscultation bilaterally
CARDIOVASCULAR: regular rate and rhythm
ABDOMEN/: soft, non-distended, right upper quadrant tenderness to palpation, no rebound or guarding
exam: External genitalia with thinning skin. vaginal vault is without discharge. Cervix is of normal color without lesion. The os is closed. There is no bleeding noted.
EXTREMITIES: non-tender, no edema/swelling
NEUROLOGIC: awake and alert, moves all extremities
SKIN: warm
Course
Orders/Labs/Results
Orders:
Orders
11/28/24 13:57
Electrocardiogram (*1) Urgent
Reason for Study: Abdominal Pain
EKG- Treatment ONCE
IV Insert/Care/Rem.- Treatment PRN
11/28/24 14:07
Complete Blood Count/With Diff Urgent
Comprehensive Metabolic Panel Urgent
Lipase Urgent
11/28/24 15:56
Add On- LAB Urgent
Tests Added?: troponin, dimer
11/28/24 15:58
Urinalysis Reflex To Culture Urgent
Date Specimen was Collected: 11/28/24
Time Specimen was Collected: 15:57
Urine Microscopic Reflex Cult Urgent
Urine Culture Urgent
RAÚL Source: U
Specimen Description:
Date Specimen was Collected: 11/28/24
Time Specimen was Collected: 15:57
CR Chest - 2 Views Urgent
Comment:
Reason For Exam: cp, sob
11/28/24 16:03
D-Dimer Routine
Comment: NEEDS TO BE COLLECTED
Troponin I Routine
Comment: NEEDS TO BE COLLECTED
Genital Culture Urgent
RAÚL Source: Cervix
Specimen Description:
Date Specimen was Collected: 11/28/24
Time Specimen was Collected: 16:01
11/28/24 17:18
CT Pe/abd/pel W Urgent
Reason For Exam: positive dimer
11/28/24 18:29
Ketorolac [Toradol] 15 mg IV NOW STA
Ondansetron Injectable [Zofran] 4 mg IV NOW STA
Abnormal Lab Results
11/28/24 11/28/24 11/28/24
14:07 15:58 16:03
Hgb 11.0 L g/dL
(12.0-16.0)
Hct 35.7 L %
(37.0-47.0)
MCV 80.0 L fL
(81.0-99.0)
MCH 24.7 L pg
(27.0-31.0)
MCHC 30.8 L g/dL
(33.0-37.0)
MPV 10.5 H fL
(7.4-10.4)
D-Dimer 1.96 H ug/mlFEU
(0.00-0.50)
Chloride 108 H mmol/L
(98-107)
Glucose 172 H mg/dl
(70-99)
Ur Occult Blood Reflex 1+ A
(Negative)
Leukocyte Esterase Rfl 3+ A
(Negative)
Urine WBC (Reflex) 50-60 A /HPF
(0-5)
Urine Bacteria (Reflex) Moderate A
(Negative)
Urine Glucose 4+ A
(Negative)
Urine Albumin (Reflex) 1+ A
(Neg - Trace)
11/28/24 14:07
11/28/24 14:07
Vital Signs
Initial and Last Documented VS:
Initial Vital Signs
Pulse Resp BP Pulse Ox
77 19 170/88 98
11/28/24 13:52 11/28/24 13:52 11/28/24 13:52 11/28/24 13:52
Last Documented Vital Signs
Pulse Resp BP Pulse Ox
71 15 184/74 98
11/28/24 15:56 11/28/24 15:56 11/28/24 15:56 11/28/24 13:52
MDM/Problems Addressed
Differential Diagnosis Includes:
Patient is a 73-year-old woman with history of CAD, diabetes, hypertension, hyperlipidemia, asthma presenting to the emergency department chest pain shortness of breath and vaginal/urinary symptoms. Vitals unremarkable exam does show right upper
quadrant tenderness with unremarkable pelvic exam. Differential consisted of urinary tract infection versus vaginal yeast infection versus BV versus ACS versus PE versus biliary pathology. Will obtain a broad workup including troponin, dimer, EKG,
CT scan of the abdomen, urinalysis and will send vaginal swab.
*Pulse Oximetry
Patient hypoxic: no (98)
*Critical Care Note
Total Time (30-74mins, 75-104mins- exclusive of procedures): Not Applicable
Update Note
Update Note:
Dimer is positive. Troponin is normal
CT scan negative for PE. There is moderate amount of stool. She does have cholelithiasis. However her LFTs are normal. Urine does appear contaminated with squamous cells which makes it difficult to interpret though patient does have symptoms of.
Urine has been sent for culture. After shared decision making we will start antibiotics. Patient advised to start using stool softener. Will discharge this time.
ED Attending Note
-
Portions of this chart may have been created with voice recognition software.� Occasional wrong word or��sound alike� substitutions may have occurred due to the inherent limitations of voice recognition software.
Discharge Plan
Departure
Patient Disposition: Home (Routine Discharge)
Date of Disposition: 11/28/24
Time of Disposition: 20:46
Patient with high blood pressure during this ER visit?: Yes
Discharge Problem:
Acute UTI, Constipation
Instructions: Constipation, Adult (DC)
Prescriptions:
New
cefdinir 300 mg capsule
300 mg PO BID 5 Days Qty: 10 0RF
No Action
metformin 1,000 MG tablet
1,000 mg PO BID@0800,1700
cholecalciferol (vitamin D3) [Vitamin D3] 25 mcg (1,000 unit) Tablet
25 mcg PO DAILY
losartan 50 mg Tablet
50 mg PO DAILY Qty: 0
Patient Comments:
unknonw dose
hydrochlorothiazide 25 mg tablet
25 mg PO DAILY
rosuvastatin 40 mg tablet
40 mg PO DAILY
aspirin 81 mg Tablet,Delayed Release (Dr/Ec)
81 mg PO DAILY
budesonide-formoterol [Symbicort] 160-4.5 mcg/actuation HFA aerosol inhaler
2 inh INHALATION BID
pantoprazole 40 mg tablet,delayed release (DR/EC)
40 mg PO DAILY
Humalog Mix 75-25(U-100)Insuln 100 unit/mL (75-25) suspension
23 unit SC HS
Rx Instructions:
at 1630 (evening)
insulin lispro protamin-lispro [Humalog Mix 75-25 KwikPen] 100 unit/mL (75-25) insulin pen
30 unit SC DAILY
albuterol sulfate 90 mcg/actuation HFA aerosol inhaler
2 inh INHALATION Q4HPRN PRN (Reason: WHEEZING )
acetaminophen [Tylenol] 325 mg Tablet
650 mg PO Q6H PRN (Reason: pain)
ezetimibe [Zetia] 10 mg Tablet
10 mg PO DAILY
duloxetine 30 mg Capsule, Delayed Rel Sprinkle
30 mg PO DAILY
nifedipine [Procardia XL] 30 mg tablet extended release 24hr
30 mg PO DAILY Qty: 90 5RF
furosemide [Lasix] 40 mg tablet
40 mg PO DAILY Qty: 90 5RF
dicyclomine 20 mg tablet
20 mg PO QID PRN (Reason: pain) Qty: 20 0RF
diphenhydramine HCl [Benadryl Allergy] 25 mg tablet
25 mg PO TID PRN (Reason: itching) Qty: 20 0RF
Referrals:
Allyn Berry MD [Family Provider, Family Practice]
Activity Restrictions/Additional Instructions:
You were seen in the Emergency Department today for abdominal pain and urinary symptoms . While you were here we performed blood work, which was reassuring. I did start you on antibiotics for your infection. Please start taking a stool softener to
help with the constipation.
We would like for you to follow up with your primary care physician for further evaluation. If you experience fever, worsening of your symptoms, or develop any other new or concerning symptoms, please return to the Emergency Department immediately.
Please see the attached sheet for additional information.
Interventions
Interventions:
*Risk Screen - Suicide Last Done: 11/28/24 13:52
*General Assessment Last Done: 11/28/24 16:06
*Neglect/Abuse Screening Last Done: 11/28/24 13:52
*ED- Fall Risk Assessment Last Done: 11/28/24 16:00
BL-Evqvyr-Gkqqrpxdwt Assessment Last Done: 11/28/24 18:18
Discharge Date and Time
Print Language: [place]
[2024-11-28 16:14] LABS: Urine Albumin 1+ (Neg - Trace); Urine Bilirubin Negative (Negative); Urine Character Slightly Cloudy (Clear); Urine Color Yellow; Urine Glucose 4+ (Negative); Urine Ketone Negative (Negative); Urine Leukocyte 3+ (Negative); Urine Nitrite Negative (Negative); Urine Occult Blood 1+ (Negative); Urine Urobilinogen Negative (Neg - 1+); Urine pH 6.5 (5.0-9.0)
[2024-11-28 16:32] LABS: Urine Squamous Cell >30 /LPF (Few)
[2024-11-28 16:33] LABS: Urine Red Blood Cell 0-2 /HPF (0-2)
[2024-11-28 16:34] LABS: Urine Bacteria Moderate (Negative); Urine White Cell 50-60 /HPF (0-5)
[2024-11-28 16:40] LABS: Troponin I < 0.012 ng/ml
[2024-11-28 16:58] LABS: D-Dimer 1.96 ug/mlFEU (0.00-0.50)
[2024-11-28 18:18] VITALS: BMI 29.7
[2024-11-28] MEDS: TORADOL 15 MG IV (18:53)
[2024-11-28] MEDS: ZOFRAN 4 MG IV (18:53)
== END 2024-11-28 21:27 | disposition home or self-care (01) ==
LOC: EMR 13:49
PROVIDERS: Student in an Organized Health Care Education/Training Program; EMERGENCY PHYSICIAN Student in an Organized Health Care Education/Training Program; FAMILY PHYSICIAN Family Medicine
DX: N39.0 Urinary tract infection, site not specified (principal); K59.00 Constipation, unspecified; I49.3 Ventricular premature depolarization; J45.909 Unspecified asthma, uncomplicated; I25.10 Atherosclerotic heart disease of native coronary artery without angina pectoris; K21.9 Gastro-esophageal reflux disease without esophagitis; E78.00 Pure hypercholesterolemia, unspecified; E11.9 Type 2 diabetes mellitus without complications; I10 Essential (primary) hypertension; K43.9 Ventral hernia without obstruction or gangrene; Z87.891 Personal history of nicotine dependence; Z90.710 Acquired absence of both cervix and uterus
CPT/HCPCS: 99284; 96374; 96375; 71046; 71275; 74177; 80053; 81003; 81015; 83690; 84484; 85025; 85379; 87070; 87086; 93005; Q9967

== ENCOUNTER 2025-01-12 14:15 | Outpatient (RCR) | payer OTHER, SELFPAY | END 2025-01-12 23:59 | disposition home or self-care (01) | LOC: RPT 14:15 | PROVIDERS: ATTENDING PHYSICIAN Family Medicine | DX: G89.29 Other chronic pain (principal); M54.9 Dorsalgia, unspecified; Z73.6 Limitation of activities due to disability | CPT/HCPCS: 97010; 97110; 97112; 97163 ==

== ENCOUNTER → 2025-01-19 09:10 | Outpatient (REF) | payer OTHER, SELFPAY | LOC: RAD 09:10 | PROVIDERS: ATTENDING PHYSICIAN Family Medicine | DX: Z78.0 Asymptomatic menopausal state (principal) | CPT/HCPCS: 77080 ==

== ENCOUNTER 2025-01-20 12:02 | Outpatient (RCR) | payer OTHER, SELFPAY | END 2025-01-20 23:59 | disposition home or self-care (01) | LOC: RPT 12:02 | PROVIDERS: ATTENDING PHYSICIAN Family Medicine | DX: G89.29 Other chronic pain (principal); M54.9 Dorsalgia, unspecified; Z73.6 Limitation of activities due to disability | CPT/HCPCS: 97010; 97110; 97530 ==

== ENCOUNTER 2025-01-20 12:48 | Emergency (ER) | payer OTHER, SELFPAY ==
[2025-01-20 12:51] VITALS: BP 124/90
[2025-01-20 13:15] LABS: Hematocrit 32.7 % (37.0-47.0); Hemoglobin 9.7 g/dL (12.0-16.0); Mean Corp Hgb Conc. 29.7 g/dL (33.0-37.0); Mean Corpuscular Volume 77.3 fL (81.0-99.0); Nucleated Red Blood Cells % 0 %; Platelet Count 190 10^3/uL (130-400); Red Cell Dist. Width 17.2 % (11.5-14.5)
[2025-01-20 13:24] LABS: INR 1.00; PT 13.5 Sec (11.4-14.6)
[2025-01-20 13:29] LABS: ALT (SGPT) 14 U/L (0-35); AST (SGOT) 21 U/L (14-36); Albumin 3.9 g/dl (3.5-5.0); Alkaline Phosphatase 93 U/L (38-126); Blood Urea Nitrogen 18 mg/dl (7-17); Calcium 9.3 mg/dl (8.4-10.2); Carbon Dioxide 28 mmol/L (22-30); Chloride 107 mmol/L (98-107); Glucose 133 mg/dl (70-99); Potassium 4.7 mmol/L (3.5-5.1); Sodium 138 mmol/L (135-145); Total Protein 6.3 g/dl (6.3-8.2); eGFR > 60.00
[2025-01-20 13:40] LABS: Troponin I < 0.012 ng/ml
--- NOTE | 2025-01-20 14:29 | ED.GENMED ---
History of Present Illness
General
Chief Complaint: Chest Pain
Source: load dispatcher ([employer] speech language pathology assistant was utilized for patient encounter)
Time Seen by Provider: 01/20/25 14:28
Nursing documentation reviewed up to this point in time: agreed with
History of Present Illness
History of Present Illness:
74-year-old female presents to the ER for evaluation of bilateral shoulder discomfort, left-sided chest discomfort, feeling of shortness of breath, back pain, lower extremity discomfort and feeling generally tired. She states that the majority of
the symptoms have been present for the last several weeks to months. Patient had previously seen orthopedics and had injection in her lower back 1 month ago. She has a follow-up appointment scheduled later this month for further care. She states
that she took Tylenol at 9:00 this morning with no significant improvement. Patient was seen at her routine physical therapy appointment and was complaining of chest discomfort. She states that the pain has been present constantly since yesterday.
Pain is not provoked with movement or activity. She has been having shoulder pain since she fell 5 years ago and had an injury to her left shoulder. She does have a significant prior cardiac history and underwent multivessel bypass surgery, but
does not necessarily correlate today's symptoms with symptoms she experienced prior to her surgery. Patient has been eating and drinking without difficulty. She had previously been on diabetes medications but states that her family physician had
taken her off of these medications. She denies any fevers or chills. No syncope or trauma. She has been experiencing bilateral lower extremity discomfort with mild swelling over the last several months. She is not on any blood thinners. She
denies cough or cold symptoms. She states that she had a urinary tract infection a few months ago but was experiencing dysuria and urinary frequency at that time. Today she is not having any urinary complaints.
Past History
Past History
ED Past Medical History: Arrthythmia (PVC's), Asthma, CAD, GERD, HTN, Hypercholesterolemia and IDDM
ED Past Surgical History: Cardiac (Unremarkable stress echo July 2013) and Gynecological (hysterectomy)
Social History
Tobacco: Former smoker
Alcohol: Occasional
Drug: None
Personal: Single
Living: with family
Employment: Not employed
Family History
Family History: Other (nc)
Review of Systems
Review of Systems
Allergies reviewed?: Yes
Phy Exam
Physical Exam
Physical Exam:
Patient is awake, alert, obese, appears younger than stated age, in no acute distress, moving herself easily on the stretcher without assistance, mucous membranes moist, conjunctiva pink, heart regular rate and rhythm without murmurs or ectopy, no
increased work of breathing, no JVD, lungs are clear to auscultation no wheezes rales or rhonchi, abdomen is obese, soft, nontender, mild diffuse pain on palpation throughout lumbar spine without overlying skin change, no midline pain on palpation,
no CVA tenderness, bilateral lower extremities with 2+ patellar reflexes, trace edema to bilateral ankles, 2+ DP pulses present symmetric bilateral feet, no rash, GCS is 15
Scores
Heart Score for Chest Pain Patients
STEMI patient?: No
History: Slightly or Non-Suspicious
ECG: Normal
Age: >/= 65 years
Risk Factors: >/= 3 Risk Factors or History of CAD
Troponin: </= Normal Limit
Heart Score for Chest Pain Patients: 4
Heart Score Risk: 20.3% MACE over next 6 weeks
Course
Orders/Labs/Results
Orders:
Orders
01/20/25 12:56
Electrocardiogram (*1) Urgent
Reason for Study: Chest Pain
EKG- Treatment ONCE
01/20/25 13:07
Complete Blood Count/With Diff Urgent
Comprehensive Metabolic Panel Urgent
Prothrombin Time Urgent
Troponin I Urgent
01/20/25 14:31
CR Chest - 2 Views Urgent
Comment:
Reason For Exam: chest pain
01/20/25 15:41
Acetaminophen [Tylenol] 1,000 mg PO NOW STA
01/20/25 15:42
Urinalysis Reflex To Culture Urgent
Date Specimen was Collected: 01/20/25
Time Specimen was Collected: 15:44
01/20/25 15:45
Lidocaine [Lidocaine 4% Patch] 1 patch TOPICAL DAILY
Apply Lidocaine patch(s) to:: lumbar spine
Abnormal Lab Results
01/20/25
13:07
Hgb 9.7 L g/dL
(12.0-16.0)
Hct 32.7 L %
(37.0-47.0)
MCV 77.3 L fL
(81.0-99.0)
MCH 22.9 L pg
(27.0-31.0)
MCHC 29.7 L g/dL
(33.0-37.0)
RDW 17.2 H %
(11.5-14.5)
MPV 10.7 H fL
(7.4-10.4)
Absolute Monos (auto) 0.7 H 10^3/uL
(0.1-0.6)
Monocytes % 10.4 H %
(1.7-9.3)
BUN 18 H mg/dl
(7-17)
Glucose 133 H mg/dl
(70-99)
01/20/25 13:07
01/20/25 13:07
Labs are very reassuring including normal white blood count Anemia noted, slightly worsened compared to prior visit from 11/28/2024, No indication for transfusion. Troponin is normal which is very reassuring given symptoms have been present for 24
hours
Vital Signs
Initial and Last Documented VS:
Initial Vital Signs
Temp Pulse Resp BP Pulse Ox
97.3 F 77 18 124/90 97
01/20/25 12:51 01/20/25 12:51 01/20/25 12:51 01/20/25 12:51 08/05/25 12:51
Last Documented Vital Signs
Temp Pulse Resp BP Pulse Ox
97.3 F 77 18 124/90 97
01/20/25 12:51 01/20/25 12:51 01/20/25 12:51 01/20/25 12:51 01/20/25 14:30
MDM/Problems Addressed
Differential Diagnosis Includes:
Differential diagnosis considered but not limited to acute exacerbation of chronic pain, ACS, CHF, electrolyte dyscrasia, UTI along with other etiologies considered
Chronic conditions affecting care:
Chronic pain, ACS, diabetes
*Radiology
Radiology exam reviewed: radiology read reviewed
*Pulse Oximetry
SaO2: 97
Oxygen Mode of Delivery: Room air
Patient hypoxic: no
*EKG
Interpreted by ED Provider?: Yes (I independently viewed and interpreted twelve-lead EKG showing normal sinus rhythm, rate 81, leftward axis, septal Q waves, no ST elevation, this is an abnormal tracing, but no change compared to prior from
11/28/2024)
*Billet Inspector Interpretation
Rate: normal (I independently viewed and interpreted rhythm strip showing normal sinus rhythm, no ectopy)
*Critical Care Note
Total Time (30-74mins, 75-104mins- exclusive of procedures): Not Applicable
Update Note
Update Note:
I discussed with patient very reassuring workup so far. Awaiting urinalysis for addition of antibiotic if needed. Will give Tylenol and apply Salonpas patch for her chronic pain. O discussed with patient need for follow-up with primary care
physician for reevaluation and further care.
ED Attending Note
-
Portions of this chart may have been created with voice recognition software.� Occasional wrong word or��sound alike� substitutions may have occurred due to the inherent limitations of voice recognition software.
Discharge Plan
Departure
Discharge Problem:
Chest pain, Anemia, Fatigue
Prescriptions:
No Action
metformin 1,000 MG tablet
1,000 mg PO BID@0800,1700
cholecalciferol (vitamin D3) [Vitamin D3] 25 mcg (1,000 unit) Tablet
25 mcg PO DAILY
losartan 50 mg Tablet
50 mg PO DAILY Qty: 0
Patient Comments:
unknonw dose
hydrochlorothiazide 25 mg tablet
25 mg PO DAILY
rosuvastatin 40 mg tablet
40 mg PO DAILY
aspirin 81 mg Tablet,Delayed Release (Dr/Ec)
81 mg PO DAILY
budesonide-formoterol [Symbicort] 160-4.5 mcg/actuation HFA aerosol inhaler
2 inh INHALATION BID
pantoprazole 40 mg tablet,delayed release (DR/EC)
40 mg PO DAILY
Humalog Mix 75-25(U-100)Insuln 100 unit/mL (75-25) suspension
23 unit SC HS
Rx Instructions:
at 1630 (evening)
insulin lispro protamin-lispro [Humalog Mix 75-25 KwikPen] 100 unit/mL (75-25) insulin pen
30 unit SC DAILY
albuterol sulfate 90 mcg/actuation HFA aerosol inhaler
2 inh INHALATION Q4HPRN PRN (Reason: WHEEZING )
acetaminophen [Tylenol] 325 mg Tablet
650 mg PO Q6H PRN (Reason: pain)
ezetimibe [Zetia] 10 mg Tablet
10 mg PO DAILY
duloxetine 30 mg Capsule, Delayed Rel Sprinkle
30 mg PO DAILY
nifedipine [Procardia XL] 30 mg tablet extended release 24hr
30 mg PO DAILY Qty: 90 5RF
furosemide [Lasix] 40 mg tablet
40 mg PO DAILY Qty: 90 5RF
dicyclomine 20 mg tablet
20 mg PO QID PRN (Reason: pain) Qty: 20 0RF
diphenhydramine HCl [Benadryl Allergy] 25 mg tablet
25 mg PO TID PRN (Reason: itching) Qty: 20 0RF
cefdinir 300 mg capsule
300 mg PO BID 5 Days Qty: 10 0RF
Referrals:
Allyn Berry MD [Family Provider, Family Practice] - Follow up in 2-3 days
Activity Restrictions/Additional Instructions:
Continue current medications. Continue using Tylenol as needed for pain. Please contact your primary care physician tomorrow to schedule appointment for reevaluation and further care.
Interventions
Interventions:
*Risk Screen - Suicide Last Done: 01/20/25 12:51
*General Assessment Last Done: 01/20/25 12:51
*Neglect/Abuse Screening Last Done: 01/20/25 12:51
Discharge Date and Time
Print Language: TONGAN
[2025-01-20] MEDS: TYLENOL 1000 MG PO (16:05)
[2025-01-20] MEDS: LIDOCAINE 4% PATCH 1 PATCH TOPICAL (16:06)
[2025-01-20 16:33] LABS: Urine Character Clear (Clear)
[2025-01-20 19:07] VITALS: BP 139/85
== END 2025-01-20 18:40 | disposition home or self-care (01) ==
LOC: EMR 12:48
PROVIDERS: Emergency Medicine; EMERGENCY PHYSICIAN Emergency Medicine; FAMILY PHYSICIAN Family Medicine
DX: R07.89 Other chest pain (principal); D64.9 Anemia, unspecified; R53.83 Other fatigue; M25.511 Pain in right shoulder; M25.512 Pain in left shoulder; R06.02 Shortness of breath; I49.3 Ventricular premature depolarization; J45.909 Unspecified asthma, uncomplicated; I25.10 Atherosclerotic heart disease of native coronary artery without angina pectoris; K21.9 Gastro-esophageal reflux disease without esophagitis; I10 Essential (primary) hypertension; E78.00 Pure hypercholesterolemia, unspecified; E11.9 Type 2 diabetes mellitus without complications; Z87.440 Personal history of urinary (tract) infections; Z87.891 Personal history of nicotine dependence; Z90.710 Acquired absence of both cervix and uterus
CPT/HCPCS: 99283; 71046; 80053; 81003; 84484; 85025; 85610; 93005

== ENCOUNTER 2025-03-20 18:30 | Emergency (ER) | payer OTHER, SELFPAY ==
[2025-03-20 18:34] VITALS: BP 181/78
--- NOTE | 2025-03-20 19:34 | ED.GENMED ---
History of Present Illness
General
Chief Complaint: Fall
Time Seen by Provider: 03/20/25 19:16
History of Present Illness
History of Present Illness:
74-year-old female with history of diabetes, hypertension, CAD status post CABG presenting to the emergency department for fall. Patient reports prior to arrival she fell from a carpet onto cement. She fell onto her right ribs and injured her left
knee. She has since had difficulty ambulating secondary to the pain. Denies head injury or loss of consciousness. Notes that she tripped, denies any prodromal dizziness or lightheadedness. Denies chest pain or difficulty breathing. Reports pain
with deep inspiration due to pain on her right anterior ribs. Denies abdominal pain. She is not on any blood thinners other than 81 mg aspirin. Denies additional acute medical complaints
Past History
Past History
ED Past Medical History: Arrthythmia (PVC's), Asthma, CAD, GERD, HTN, Hypercholesterolemia and IDDM
ED Past Surgical History: Cardiac (Unremarkable stress echo July 2013) and Gynecological (hysterectomy)
Social History
Tobacco: Former smoker
Alcohol: Occasional
Drug: None
Personal: Single
Living: with family
Employment: Not employed
Family History
Family History: Other (nc)
Phy Exam
Physical Exam
Physical Exam:
General: Well-appearing, no clinical signs of dehydration, nontoxic and in no acute distress
HEENT: protecting airway
Head: no signs of trauma
Neck: appears supple, no midline tenderness
CV: Normal heart rate, regular rhythm
Resp: No accessory muscle use, no increased work of breathing, lungs clear to auscultation bilaterally. Reproducible tenderness to the right anterior inferior ribs. No crepitus.
Abd: Soft and non-distended, no tenderness to palpation
Extremities: Patellar swelling with no obvious deformity of the left knee. Limited range of motion secondary to pain. No erythema or warmth. Limited range of motion of the hip secondary to patient's knee pain.
Neuro: alert, no focal neurologic deficit
: deferred
Rectal: deferred
Psych: Normal affect
Skin: Intact
Course
Orders/Labs/Results
Orders:
Orders
03/20/25 19:31
Ketorolac [Toradol] 15 mg IM NOW STA
Hip, Left 2-3 Views [CR Hip - LT w/wo Pel 2-3 Vw*] Urgent
Comment:
Reason For Exam: pain after fall
Include a pelvis x-ray?: Yes
Knee, Left 4 or More Views [CR Knee - Left 4 Or More View*] Urgent
Comment:
Reason For Exam: pain and swelling after fall
Ribs, Right 3 View W/PA Chest [CR Ribs-right 3 Vw W/pa Chest*] Urgent
Comment:
Reason For Exam: pain after fall
03/20/25 21:48
Crutches-Treatment ONCE
Knee Immobilizer Left-Treatmen ONCE
Oxycodone/Acetaminophen [Percocet 5/325] 1 tablet PO NOW STA
Incentive Spirometry [Rx Incentive Spirometry] [RESP] Urgent
Frequency: q1h while awake
Vital Signs
Initial and Last Documented VS:
Initial Vital Signs
Temp Pulse Resp BP Pulse Ox
98.2 F 78 16 181/78 98
03/20/25 18:34 03/20/25 18:34 03/20/25 18:34 03/20/25 18:34 03/20/25 18:34
Last Documented Vital Signs
Temp Pulse Resp BP Pulse Ox
98.2 F 78 16 181/78 98
03/20/25 18:34 03/20/25 18:34 03/20/25 18:34 03/20/25 18:34 03/20/25 19:38
MDM/Problems Addressed
MDM/Problems Addressed:
74-year-old female with history of hypertension, hyperlipidemia, CAD presenting after a fall after she slipped and fell onto concrete with injury to her right ribs and left knee. Vital signs are significant for hypertension.
On exam, patient is in no acute distress, however slightly uncomfortable secondary to pain. GCS of 15. No signs of head trauma, no midline cervical neck tenderness. Patient denies any head injury. Notes that the fall was mechanical in nature,
denies any prodromal symptoms, without present concern for near-syncope or syncope. Obvious swelling to the left knee with concern for possible meniscal tear with suprapatellar and patellar swelling. Fracture is also a consideration. Plan for
x-ray. No present neurovascular compromise. No infectious findings. Will also obtain x-ray of the left hip. Regarding the right rib pain, will obtain x-ray of the ribs for concern for rib fracture versus contusion. Lungs are clear to
auscultation with lower suspicion for pneumothorax. No tenderness to abdomen without concern for abdominal injury. Toradol administered for pain
21:50 -x-ray shows acute patellar fracture as well as a fracture of the right eighth rib. Consistent with patient's exam. No signs of pneumothorax or additional pulmonary process. Will place patient in a knee immobilizer and provide crutches and
ensure that she is steady. Patient lives at home with her son. Will prescribe Percocet for more severe pain, however did caution against somnolence and recommended ibuprofen as mainstay of pain management. Will provide incentive spirometry. Also
recommending close interval follow-up with orthopedics. Otherwise feel stable for discharge. Return precautions discussed and patient verbalized understanding.
*Pulse Oximetry
SaO2: 98
Oxygen Mode of Delivery: Room air
Patient hypoxic: no
*Critical Care Note
Total Time (30-74mins, 75-104mins- exclusive of procedures): Not Applicable
ED Attending Note
-
Portions of this chart may have been created with voice recognition software.� Occasional wrong word or��sound alike� substitutions may have occurred due to the inherent limitations of voice recognition software.
Discharge Plan
Departure
Prescriptions:
No Action
metformin 1,000 MG tablet
1,000 mg PO BID@0800,1700
cholecalciferol (vitamin D3) [Vitamin D3] 25 mcg (1,000 unit) Tablet
25 mcg PO DAILY
losartan 50 mg Tablet
50 mg PO DAILY Qty: 0
Patient Comments:
unknonw dose
hydrochlorothiazide 25 mg tablet
25 mg PO DAILY
rosuvastatin 40 mg tablet
40 mg PO DAILY
aspirin 81 mg Tablet,Delayed Release (Dr/Ec)
81 mg PO DAILY
budesonide-formoterol [Symbicort] 160-4.5 mcg/actuation HFA aerosol inhaler
2 inh INHALATION BID
pantoprazole 40 mg tablet,delayed release (DR/EC)
40 mg PO DAILY
Humalog Mix 75-25(U-100)Insuln 100 unit/mL (75-25) suspension
23 unit SC HS
Rx Instructions:
at 1630 (evening)
insulin lispro protamin-lispro [Humalog Mix 75-25 KwikPen] 100 unit/mL (75-25) insulin pen
30 unit SC DAILY
albuterol sulfate 90 mcg/actuation HFA aerosol inhaler
2 inh INHALATION Q4HPRN PRN (Reason: WHEEZING )
acetaminophen [Tylenol] 325 mg Tablet
650 mg PO Q6H PRN (Reason: pain)
ezetimibe [Zetia] 10 mg Tablet
10 mg PO DAILY
duloxetine 30 mg Capsule, Delayed Rel Sprinkle
30 mg PO DAILY
nifedipine [Procardia XL] 30 mg tablet extended release 24hr
30 mg PO DAILY Qty: 90 5RF
furosemide [Lasix] 40 mg tablet
40 mg PO DAILY Qty: 90 5RF
dicyclomine 20 mg tablet
20 mg PO QID PRN (Reason: pain) Qty: 20 0RF
diphenhydramine HCl [Benadryl Allergy] 25 mg tablet
25 mg PO TID PRN (Reason: itching) Qty: 20 0RF
cefdinir 300 mg capsule
300 mg PO BID 5 Days Qty: 10 0RF
Referrals:
Allyn Berry MD [Family Provider, Family Practice]
Interventions
Interventions:
*Neglect/Abuse Screening Last Done: 03/20/25 18:34
*ED- Fall Risk Assessment Last Done: 03/20/25 18:34
Discharge Date and Time
Print Language: ESTONIAN
[2025-03-20] MEDS: TORADOL 15 MG IM (19:37)
[2025-03-20] MEDS: PERCOCET 5/325 1 TABLET PO (22:15)
--- NOTE | 2025-03-20 22:50 | EDRN ---
Went over crutches and knee immobilizer with patient and family, all understand use and follow up care.
== END 2025-03-20 22:54 | disposition home or self-care (01) ==
LOC: EMR 18:30
PROVIDERS: EMERGENCY PHYSICIAN Student in an Organized Health Care Education/Training Program; FAMILY PHYSICIAN Family Medicine
DX: S82.002A Unspecified fracture of left patella, initial encounter for closed fracture (principal); S22.31XA Fracture of one rib, right side, initial encounter for closed fracture; W01.0XXA Fall on same level from slipping, tripping and stumbling without subsequent striking against object, initial encounter; E11.9 Type 2 diabetes mellitus without complications; E78.00 Pure hypercholesterolemia, unspecified; I25.10 Atherosclerotic heart disease of native coronary artery without angina pectoris; I10 Essential (primary) hypertension; J45.909 Unspecified asthma, uncomplicated; Z87.891 Personal history of nicotine dependence; Z90.710 Acquired absence of both cervix and uterus; Z95.1 Presence of aortocoronary bypass graft
CPT/HCPCS: 99283; 96372; 71101; 73502; 73564